=== PATIENT | male | born 1970 | race American Indian/Alaskan Native ===

== ENCOUNTER 2017-11-01 22:23 | Emergency (ER) | payer SELFPAY ==
[2017-11-01] MEDS ORDERED: ASPIRIN PO ONE (22:39)
[2017-11-01 22:55] LABS: Basophils % (Auto) 0.5 % (0.0-1.8); Eosinophils # (Auto) 0.4 K/mm3 (0.0-0.4); Eosinophils % (Auto) 6.3 % (0.0-4.3); Hemoglobin 14.6 gm/dl (11.8-15.2); Lymphocytes # (Auto) 3.2 K/mm3 (1.2-5.4); Lymphocytes % (Auto) 45.8 % (13.4-35.0); Mean Corpuscular HGB Conc 32 % (32-34); Mean Corpuscular Hemoglobin 23 pg (28-32); Mean Corpuscular Volume 72 fl (84-94); Monocytes # (Auto) 0.7 K/mm3 (0.0-0.8); Monocytes % (Auto) 9.5 % (0.0-7.3); Platelet Count 279 K/mm3 (140-440); Red Blood Count 6.44 M/mm3 (3.65-5.03); Red Cell Distribution Width 14.8 % (13.2-15.2)
[2017-11-01 23:18] LABS: BUN/Creatinine Ratio 14; Blood Urea Nitrogen 11 mg/dL (9-20); Calcium 9.1 mg/dL (8.4-10.2); Hemolysis Index 15
[2017-11-02] MEDS ORDERED: ATROVENT IH ONE (01:42)
[2017-11-02] MEDS ORDERED: DELTASONE PO ONE (01:42)
[2017-11-02] MEDS ORDERED: PROVENTIL IH ONE (01:42)
[2017-11-02] MEDS ORDERED: ULTRAM PO ONE (01:44)
--- NOTE | 2017-11-02 01:59 | Emergency Department Report ---
- General Chief Complaint: Chest Pain Stated Complaint: CHEST PAIN,FEVER,SOB Time Seen by Provider: 11/02/17 00:30 Source: patient Mode of arrival: Ambulatory Limitations: No Limitations - History of Present Illness Initial Comments: 46-year-old male with no significant past medical history presents to the hospital complaining of one-week of cough productive of yellow sputum, shortness of breath, and left-sided chest pain. Patient having shortness of breath with exertion and thinks that his breathing worsens at night. He denies audible wheezing. He also complains of chronic left-sided chest pain radiating to the back for greater than 6 years. 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 Pain is described as sharp, worse to palpation and with abducting his shoulder. Patient denies fever but states he's been having hot and cold flashes. Last long-distance travel was 1.5 months ago. He denies calf tenderness, edema, smoking history, family history of CAD, or history of asthma or COPD. - Related Data Previous Rx's Medication Instructions Recorded Last Taken Type ALBUTEROL Inhaler [ProAir HFA 2 puff IH QID PRN #1 inhalation 11/02/17 Unknown Rx Inhaler] Azithromycin [Zithromax Z-MARCIA] 1 dose PO DAILY 5 Days tab 11/02/17 Unknown Rx Ibuprofen [Motrin] 800 mg PO Q8HR PRN #30 tablet 11/02/17 Unknown Rx Inhaler, Assist Devices [Space 1 each MC PRN PRN #1 spacer 11/02/17 Unknown Rx Chamber Plus] predniSONE [Deltasone] 40 mg PO QDAY 5 Days tab 11/02/17 Unknown Rx traMADol [Ultram 50 MG tab] 50 mg PO Q6HR PRN #20 tablet 11/02/17 Unknown Rx Allergies Allergy/AdvReac Type Severity Reaction Status Date / Time No Known Allergies Allergy Unverified 11/01/17 22:39 ED Review of Systems ROS: Stated complaint: CHEST PAIN,FEVER,SOB Other details as noted in HPI Comment: All other systems reviewed and negative ED Past Medical Hx - Past Medical History Previous Medical History?: No - Surgical History Past Surgical History?: Yes Hx Appendectomy: Yes - Social History Smoking Status: Never Smoker Substance Use Type: None - Medications Home Medications: Home Medications Medication Instructions Recorded Confirmed Last Taken Type ALBUTEROL Inhaler [ProAir HFA 2 puff IH QID PRN #1 inhalation 11/02/17 Unknown Rx Inhaler] Azithromycin [Zithromax Z-MARCIA] 1 dose PO DAILY 5 Days tab 11/02/17 Unknown Rx Ibuprofen [Motrin] 800 mg PO Q8HR PRN #30 tablet 11/02/17 Unknown Rx Inhaler, Assist Devices [Space 1 each MC PRN PRN #1 spacer 11/02/17 Unknown Rx Chamber Plus] predniSONE [Deltasone] 40 mg PO QDAY 5 Days tab 11/02/17 Unknown Rx traMADol [Ultram 50 MG tab] 50 mg PO Q6HR PRN #20 tablet 11/02/17 Unknown Rx ED Physical Exam - General Limitations: No Limitations - Other Other exam information: General: No limitations, patient is alert in no acute distress Head exam: Atraumatic, normocephalic Eyes exam: Normal appearance ENT: Moist mucous membrane, normal oropharynx Neck exam: Normal inspection, full range of motion, no meningismus nontender Respiratory exam: No tachypnea, no accessory muscle use. Audible wheezing and diminished breath sounds Cardiovascular: Normal rate and rhythm, left-sided chest wall tenderness increases with left shoulder abduction Abdomen: Soft, nondistended, and nontender, with normal bowel sounds, no rebound, or guarding Extremity: Full range of motion normal inspection no deformity, no calf tenderness or edema Back: Normal Inspection, full range of motion, no tenderness Neurologic: Alert, oriented x3, cranial nerves intact, no motor or sensory deficit Psychiatric: normal affect, normal mood Skin: Warm, dry, intact ED Course Vital Signs 11/01/17 11/01/17 11/01/17 22:24 22:34 23:59 Temperature 98.4 F 98.4 F Pulse Rate 68 81 73 Pulse Rate [ Anterior Bilateral Throughout] Respiratory 18 18 26 H Rate Respiratory Rate [Anterior Bilateral Throughout] Blood Pressure 139/92 139/92 152/95 Blood Pressure [Left] O2 Sat by Pulse 97 97 98 Oximetry 11/02/17 11/02/17 11/02/17 00:00 00:15 00:20 Temperature 98.1 F Pulse Rate 76 69 79 Pulse Rate [ Anterior Bilateral Throughout] Respiratory 27 H 25 H 17 Rate Respiratory Rate [Anterior Bilateral Throughout] Blood Pressure 152/95 135/99 Blood Pressure 135/99 [Left] O2 Sat by Pulse 97 98 99 Oximetry 11/02/17 11/02/17 11/02/17 00:31 00:45 01:03 Temperature Pulse Rate 71 Pulse Rate [ Anterior Bilateral Throughout] Respiratory 29 H Rate Respiratory Rate [Anterior Bilateral Throughout] Blood Pressure 136/96 136/96 136/96 Blood Pressure [Left] O2 Sat by Pulse 99 100 Oximetry 11/02/17 11/02/17 11/02/17 01:15 01:30 01:45 Temperature Pulse Rate Pulse Rate [ Anterior Bilateral Throughout] Respiratory Rate Respiratory Rate [Anterior Bilateral Throughout] Blood Pressure 136/96 122/83 136/96 Blood Pressure [Left] O2 Sat by Pulse 100 100 100 Oximetry 11/02/17 11/02/17 11/02/17 02:00 02:14 02:15 Temperature Pulse Rate 67 Pulse Rate [ Anterior Bilateral Throughout] Respiratory 18 21 Rate Respiratory Rate [Anterior Bilateral Throughout] Blood Pressure 114/80 122/83 Blood Pressure [Left] O2 Sat by Pulse 99 99 Oximetry 11/02/17 11/02/17 11/02/17 02:30 02:38 02:45 Temperature Pulse Rate 75 75 Pulse Rate [ 70 Anterior Bilateral Throughout] Respiratory 20 25 H Rate Respiratory 20 Rate [Anterior Bilateral Throughout] Blood Pressure 120/84 120/84 Blood Pressure [Left] O2 Sat by Pulse 97 96 Oximetry 11/02/17 03:00 Temperature Pulse Rate Pulse Rate [ 85 Anterior Bilateral Throughout] Respiratory Rate Respiratory 18 Rate [Anterior Bilateral Throughout] Blood Pressure Blood Pressure [Left] O2 Sat by Pulse Oximetry ED Medical Decision Making - Lab Data Result diagrams: 11/01/17 22:41 11/01/17 22:41 Lab Results 11/01/17 11/01/17 11/02/17 Range/Units 22:41 22:41 01:13 WBC 6.9 (4.5-11.0) K/mm3 RBC 6.44 H (3.65-5.03) M/mm3 Hgb 14.6 (11.8-15.2) gm/dl Hct 46.0 H (35.5-45.6) % MCV 72 L (84-94) fl MCH 23 L (28-32) pg MCHC 32 (32-34) % RDW 14.8 (13.2-15.2) % Plt Count 279 (140-440) K/mm3 Lymph % (Auto) 45.8 H (13.4-35.0) % [place] % (Auto) 9.5 H (0.0-7.3) % Eos % (Auto) 6.3 H (0.0-4.3) % Baso % (Auto) 0.5 (0.0-1.8) % Lymph # 3.2 (1.2-5.4) K/mm3 [place] # 0.7 (0.0-0.8) K/mm3 Eos # 0.4 (0.0-0.4) K/mm3 Baso # 0.0 (0.0-0.1) K/mm3 Seg Neutrophils % 37.9 L (40.0-70.0) % Seg Neutrophils # 2.6 (1.8-7.7) K/mm3 Sodium 140 (137-145) mmol/L Potassium 4.5 (3.6-5.0) mmol/L Chloride 102.9 (98-107) mmol/L Carbon Dioxide 27 (22-30) mmol/L Anion Gap 15 mmol/L BUN 11 (9-20) mg/dL Creatinine 0.8 (0.8-1.5) mg/dL Estimated GFR > 60 ml/min BUN/Creatinine Ratio 14 % Glucose 116 H (75-100) mg/dL Calcium 9.1 (8.4-10.2) mg/dL Troponin T < 0.010 < 0.010 (0.00-0.029) ng/mL - EKG Data -: EKG Interpreted by Me (? LAE) EKG shows normal: sinus rhythm, axis (qrs 63), QRS complexes (86), ST-T waves ( no stemi/t inv) Rate: normal (75) - EKG Data When compared to previous EKG there are: previous EKG unavailable - Radiology Data Radiology results: report reviewed interpreted by me: Chest x-ray: No acute findings - Medical Decision Making Acute bronchitis Patient presents with wheezing and cough and cold symptoms Chest x-ray negative Peak flow 150 prior to nebs and 240 after Patient reports improvement in shortness of breath. Wheezing improved with treatment Will be discharged with treatment for acute bronchitis and chest wall pain. Low suspicion for PE based on lack of hypoxia, tachycardia, or DVT symptoms. Patient also has wheezing and alternative and more likely to cause of shortness. Also improved with treatment - Differential Diagnosis bronchitis, pneumonia, CHF, [place], atypical chest pain, PE Critical Care Time: No Critical care attestation.: If time is entered above; I have spent that time in minutes in the direct care of this critically ill patient, excluding procedure time. ED Disposition Clinical Impression: Acute bronchitis Disposition: TO HOME OR SELFCARE Is pt being admited?: No Does the pt Need Aspirin: No Condition: Stable Instructions: Acute Bronchitis (ED) Additional Instructions: Take the medication as prescribed. Use the discount coupon card provided to make a medication is more affordable. You may also go to [employer] website for discount coupons for your medications as well. Follow up with the clinic or doctor provided. Return if symptoms worsen Prescriptions: ALBUTEROL Inhaler [ProAir HFA Inhaler] 2 puff IH QID PRN #1 inhalation PRN Reason: Wheezing Azithromycin [Zithromax Z-MARCIA] 1 dose PO DAILY 5 Days tab Ibuprofen [Motrin] 800 mg PO Q8HR PRN #30 tablet PRN Reason: Pain Inhaler, Assist Devices [Space Chamber Plus] 1 each MC PRN PRN #1 spacer PRN Reason: Wheezing predniSONE [Deltasone] 40 mg PO QDAY 5 Days tab traMADol [Ultram 50 MG tab] 50 mg PO Q6HR PRN #20 tablet PRN Reason: Pain Referrals: LIZZIE STONE MD [Primary Care Provider] - 3-[address] [facility] [Provider Group] - 3-5 Days Time of Disposition: 03:32
--- NOTE | 2017-11-02 02:33 | XRay Report ---
FINAL REPORT PROCEDURE: XR CHEST ROUTINE 2V TECHNIQUE: PA and lateral chest radiographs were obtained. CPT 09126 HISTORY: left chest pain COMPARISON: No prior studies are available for comparison. FINDINGS: Heart: Normal. Mediastinum/Vessels: Normal. Lungs/Pleural space: Lungs are clear. There are no infiltrates, effusions or pneumothoraces.. Bony thorax: No acute osseous abnormality. Other: IMPRESSION: Normal heart and lungs..
[2017-11-02 03:49] VITALS: BP 116/76
== END 2017-11-02 03:50 | disposition home or self-care (01) ==
LOC: ED 22:23
DX: J20.9 Acute bronchitis, unspecified (principal)
CPT/HCPCS: 36415; 71046; 80048; 84484; 85025; 93005; 93010; 94640; 99284; J7512